=== PATIENT | male | born 1990 | race Caucasian/White ===

== ENCOUNTER 2016-09-01 22:15 | Emergency (ER) | payer OTHER ==
[~2016-09-01] VITALS: Ht 175.3 cm; Wt 81.6 kg
[~2016-09-01 22:15] MED LIST: TUMS500 M1 PO; TYLENOL EXTRA500 M1 PO
[2016-09-01 22:26] VITALS: BP 120/83
--- NOTE | 2016-09-01 23:07 | NUR ---
PATIENT AMBULATED TO ER BED 6.
--- NOTE | 2016-09-01 23:17 | NUR ---
26/M PRESENT TO ER C/O TOOTHACHE X 2 DAYS. PAIN 6/10 THROBBING SHARP NON-RADIATING. PT STATES HE WAS TAKING OTC MOTRIN PRIOR TO ER VISIT. AAOx4, PERRLA, BREATHING EVEN AND UNLABORED. ERMD NOTIFIED OF PATIENT STATUS.
--- NOTE | 2016-09-01 23:31 | NUR ---
PATIENT BEING EVALUATED BY DR. KAY.
[2016-09-01] MEDS ORDERED: KETOROLAC 60 MG/2 ML VIAL IM ONE (23:45)
--- NOTE | 2016-09-01 23:55 | NUR ---
Patient discharged with v/s stable. Written and verbal after care instructions given and explained. Patient alert, oriented and verbalized understanding of instructions. Ambulatory with steady gait. All questions addressed prior to discharge. ID band removed. Patient advised to follow up with PMD. Rx of MOTRIN 800MG, ULTRAM 50MG given. Patient educated on indication of medication including possible reaction and side effects. Opportunity to ask questions provided and answered.
[2016-09-01 23:56] VITALS: BP 119/87
== END 2016-09-01 23:55 | disposition home or self-care (01) ==
LOC: MED 22:15
DX: K08.89 Other specified disorders of teeth and supporting structures (principal); R03.0 Elevated blood-pressure reading, without diagnosis of hypertension; K21.9 Gastro-esophageal reflux disease without esophagitis

== ENCOUNTER 2018-01-07 14:00 | Emergency (ER) | payer OTHER ==
[~2018-01-07] VITALS: Ht 175.3 cm; Wt 81.6 kg
[2018-01-07 14:05] VITALS: BP 124/84
--- NOTE | 2018-01-07 14:07 | NUR ---
PT TRIAGED AND SENT TO ER LOBBY, GIVEN URINE CUP
--- NOTE | 2018-01-07 14:55 | NUR ---
PT AMB TO BED 2
--- NOTE | 2018-01-07 14:56 | NUR ---
27/M BIB SELF C/O PENILE PAIN WITH DISCHARGE, +REDNESS/SWELLING. 3 DAYS. 9/10 ACHING PAIN. STATES HAS YEAST INFECTION AND HE HAS HX OF CHLAMYDIA. NO OTHER COMPLAINTS. HX: CHLAMYDIA, PANIC ATTACKS.AAOX4 WITH EVEN AND STEADY GAIT; PATIENT POSITIONED FOR COMFORT; HOB ELEVATED; BEDRAILS UP X2; BED DOWN. ER MD MADE AWARE OF PT STATUS.
[2018-01-07 16:04] VITALS: BP 110/76
--- NOTE | 2018-01-07 16:04 | NUR ---
Patient discharged with v/s stable. Written and verbal after care instructions given and explained. Patient alert, oriented and verbalized understanding of instructions. Ambulatory with steady gait. All questions addressed prior to discharge. ID band removed. Patient advised to follow up with PMD. Rx of CLOTRIMAZOLE & BACITRACIN given. Patient educated on indication of medication including possible reaction and side effects. Opportunity to ask questions provided and answered.
[2018-01-07 16:07] LABS: APPEARANCE,URINE CLEAR (CLEAR); BILIRUBIN,URINE NEGATIVE (NEGATIVE); BLOOD, URINE NEGATIVE (NEGATIVE); COLOR,URINE YELLOW (YELLOW); LEUKOCYTE ESTERASE ,URINE NEGATIVE (NEGATIVE); NITRITE, URINE NEGATIVE (NEGATIVE); UGLUCOSE NEGATIVE (NEGATIVE)
[2018-01-09 06:20] LABS: CHLAMYDIA TRACHOMATIS AMP DNA Negative (Negative)
== END 2018-01-07 16:04 | disposition home or self-care (01) ==
LOC: MED 14:00
DX: N47.6 Balanoposthitis (principal); K21.9 Gastro-esophageal reflux disease without esophagitis
CPT/HCPCS: 36415; 81003; 87086; 87491; 99284

== ENCOUNTER 2018-11-03 12:51 | Emergency (ER) | payer OTHER ==
[~2018-11-03] VITALS: Ht 175.3 cm; Wt 88.5 kg
[2018-11-03 13:03] VITALS: BP 121/75
--- NOTE | 2018-11-03 13:10 | NUR ---
PT AMB TO BED 2
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
--- NOTE | 2018-11-03 14:58 | NUR ---
Eye Aquity L: 20/20 R: 20/20 B:20/20
[2018-11-03 15:03] VITALS: BP 110/70
--- NOTE | 2018-11-03 15:03 | NUR ---
Patient discharged with v/s stable. Written and verbal after care instructions given and explained. Patient alert, oriented and verbalized understanding of instructions. Ambulatory with steady gait. All questions addressed prior to discharge. ID band removed. Patient advised to follow up with PMD. Rx of Erythromycin 0.5% ointment and Patanol 0.1% given. Patient educated on indication of medication including possible reaction and side effects. Opportunity to ask questions provided and answered.
== END 2018-11-03 15:03 | disposition home or self-care (01) ==
LOC: MED 12:51
DX: H10.11 Acute atopic conjunctivitis, right eye (principal); B96.89 Other specified bacterial agents as the cause of diseases classified elsewhere; K21.9 Gastro-esophageal reflux disease without esophagitis
CPT/HCPCS: 99283

== ENCOUNTER 2020-04-11 21:05 | Emergency (ER) | payer OTHER ==
[~2020-04-11] VITALS: Ht 175.3 cm; Wt 88.9 kg
[2020-04-11 21:54] VITALS: BP 110/80
--- NOTE | 2020-04-11 21:56 | NUR ---
TO LOBBY A/W BED AMBULATORY
--- NOTE | 2020-04-11 22:30 | NUR ---
SEEN AND EXAMINED BY BAKARI WITH ORDERS, CARRIED OUT.
[2020-04-11] MEDS ORDERED: KETOROLAC 30 MG/ML VIAL IM ONE (22:35)
--- NOTE | 2020-04-11 23:10 | NUR ---
TO ADMINISTER MEDICATION, HE REFUSED , ERMD NOTED
[2020-04-12 02:25] VITALS: BP 115/76
--- NOTE | 2020-04-12 02:25 | NUR ---
RESULT BACK AND NOTED BY ERMD AND FOR D/C
--- NOTE | 2020-04-12 02:45 | NUR ---
Patient discharged with v/s stable. Written and verbal after care instructions given and explained. Patient verbalized understanding. Ambulatory with steady gait. All questions addressed prior to discharge. Advised to follow up with PMD.
== END 2020-04-12 02:25 | disposition home or self-care (01) ==
LOC: MED 21:05
DX: R51.9 Headache, unspecified (principal); K21.9 Gastro-esophageal reflux disease without esophagitis
CPT/HCPCS: 70450; 99284; J1885

== ENCOUNTER 2020-10-10 20:58 | Emergency (ER) | payer OTHER ==
[~2020-10-10] VITALS: Ht 175.3 cm; Wt 81.6 kg
[~2020-10-10 20:58] MED LIST changes: +IBUP-2213 PO; -TUMS500 M1 PO; -TYLENOL EXTRA500 M1 PO
[2020-10-10 21:10] VITALS: BP 117/70
--- NOTE | 2020-10-10 21:13 | NUR ---
TO LOBBY A/W BED AMBULATORY
--- NOTE | 2020-10-10 22:26 | NUR ---
PT AMBULATED TO BED
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
[2020-10-10] MEDS ORDERED: cefTRIAXone 250 MG in LIDOCAINE MPF 1% 0.9 ML IM ONE (22:55)
[2020-10-10] MEDS ORDERED: LIDOCAINE MPF 1% 5 ML ONE (22:59)
[2020-10-10] MEDS ORDERED: cefTRIAXone 250 MG VIAL ONE (22:59)
--- NOTE | 2020-10-10 23:22 | NUR ---
RAPID STREP A AND GROUP B STREP COMPLETED AND HANDED TO YASH FROM LAB.
[2020-10-10 23:28] VITALS: BP 117/70
--- NOTE | 2020-10-10 23:28 | NUR ---
Patient discharged with v/s stable. Written and verbal after care instructions given and explained. Patient alert, oriented and verbalized understanding of instructions. Ambulatory with steady gait. All questions addressed prior to discharge. Patient advised to follow up with PCP.
== END 2020-10-10 23:28 | disposition home or self-care (01) ==
LOC: MED 20:58
DX: J03.90 Acute tonsillitis, unspecified (principal); Z79.899 Other long term (current) drug therapy
CPT/HCPCS: 36415; 87081; 96372; 99283; J0696; J2001; 87491

== ENCOUNTER 2022-03-11 15:50 | Emergency (ER) | payer OTHER ==
[~2022-03-11] VITALS: Ht 175.3 cm; Wt 89.4 kg
[2022-03-11 16:00] VITALS: BP 129/84
[2022-03-11] MEDS ORDERED: IBUPROFEN 400 MG TAB PO ONE (16:00)
[2022-03-11] MEDS ORDERED: BPM/118S31 PO (16:01)
[2022-03-11] MEDS ORDERED: TAM75 PO (16:01)
[2022-03-11] MEDS ORDERED: IBUP-2213 PO (16:01)
--- NOTE | 2022-03-11 16:05 | NUR ---
BIB SELF C/O COUGH, TAYLOR, SORE THROAT ,CP, FEVER, X TODAY. SON HAS FLU+. CUSTOMER HAS RSV. PT HAD COVID + 1 MONTH AGO. PT TOOK TYLENOL 10 MINS AGO. ORAL TEMP 100 AT THIS TIME.
[2022-03-11 16:20] VITALS: BP 118/78
--- NOTE | 2022-03-11 16:20 | NUR ---
Patient discharged with v/s stable. Written and verbal after care instructions given and explained. Patient alert, oriented and verbalized understanding of instructions. Ambulatory with steady gait. All questions addressed prior to discharge. ID band removed. Patient advised to follow up with PMD. Rx of TAMIFLU, IBUPROFEN & BROMFED DM COUGH SYRUP given. Patient educated on indication of medication including possible reaction and side effects. Opportunity to ask questions provided and answered.
== END 2022-03-11 16:20 | disposition home or self-care (01) ==
LOC: MED 15:50
DX: B34.9 Viral infection, unspecified (principal); K21.9 Gastro-esophageal reflux disease without esophagitis
CPT/HCPCS: 99283

== ENCOUNTER 2022-03-13 18:53 | Emergency (ER) | payer OTHER ==
[~2022-03-13] VITALS: Ht 175.3 cm; Wt 90.7 kg
[~2022-03-13 18:53] MED LIST changes: +BPM/118S31 PO; +TAM75 PO
[2022-03-13 19:15] VITALS: BP 117/69
--- NOTE | 2022-03-13 19:18 | NUR ---
TO LOBBY A/W BED AMBULATORY
[2022-03-13] MEDS ORDERED: BENZ200C4 PO (20:08)
--- NOTE | 2022-03-13 20:34 | NUR ---
Patient discharged with v/s stable. Written and verbal after care instructions given and explained. Patient alert, oriented and verbalized understanding of instructions. Ambulatory with steady gait. All questions addressed prior to discharge. ID band removed. Patient advised to follow up with PMD. Rx of BENZONATE given.
== END 2022-03-13 20:34 | disposition home or self-care (01) ==
LOC: MED 18:53
DX: J06.9 Acute upper respiratory infection, unspecified (principal)
CPT/HCPCS: 71045; 99283

== ENCOUNTER 2022-06-12 03:15 | Emergency (ER) | payer OTHER ==
[~2022-06-12] VITALS: Ht 175.3 cm; Wt 81.6 kg
[~2022-06-12 03:15] MED LIST changes: +BENZ200C4 PO
[2022-06-12 03:21] VITALS: BP 160/90
--- NOTE | 2022-06-12 03:23 | NUR ---
PT ANNETTA JACKMAN. TAKEN TO BED 11
== END 2022-06-12 04:15 | disposition home or self-care (01) ==
LOC: MED 03:15
DX: R00.2 Palpitations (principal); K21.9 Gastro-esophageal reflux disease without esophagitis; Z79.899 Other long term (current) drug therapy; Z79.1 Long term (current) use of non-steroidal anti-inflammatories (NSAID)
CPT/HCPCS: 93005; 99283

== ENCOUNTER 2022-06-26 23:18 | Emergency (ER) | payer OTHER ==
[~2022-06-26] VITALS: Ht 175.3 cm; Wt 89.8 kg
[2022-06-26 23:30] VITALS: BP 124/81
--- NOTE | 2022-06-26 23:41 | NUR ---
Patient taken to bed 4.
--- NOTE | 2022-06-26 23:42 | NUR ---
Patient BIB by family from home. C/O mid chest pain x today. Patient reported, had mid chest pain, and epigastric pain, dull pain, 3/10, radiate to left arm. Hx GERD
--- NOTE | 2022-06-26 23:59 | NUR ---
XRAY AT BEDSIDE
[2022-06-27] MEDS ORDERED: IBUP-2213 PO (01:04)
[2022-06-27 01:22] VITALS: BP 106/56
== END 2022-06-27 01:22 | disposition home or self-care (01) ==
LOC: MED 23:18
DX: S29.011A Strain of muscle and tendon of front wall of thorax, initial encounter (principal); K21.9 Gastro-esophageal reflux disease without esophagitis; G47.00 Insomnia, unspecified; Z79.899 Other long term (current) drug therapy; Z79.1 Long term (current) use of non-steroidal anti-inflammatories (NSAID); X58.XXXA Exposure to other specified factors, initial encounter; Y92.89 Other specified places as the place of occurrence of the external cause; Y93.89 Activity, other specified; Y99.8 Other external cause status
CPT/HCPCS: 71045; 93005; 99283; Q0092

== ENCOUNTER 2022-07-22 07:01 | Emergency (ER) | payer OTHER ==
[~2022-07-22] VITALS: Ht 175.3 cm; Wt 90.7 kg
[2022-07-22 07:07] VITALS: BP 127/80
--- NOTE | 2022-07-22 07:18 | NUR ---
TO BED 9 FOLLOWING TRIAGE
[2022-07-22] MEDS ORDERED: ATA25 PO (07:35)
--- NOTE | 2022-07-22 07:49 | NUR ---
ASSUMED PATIENT CARE, NURSING ASSESSMENT COMPLETED.
[2022-07-22 08:11] VITALS: BP 127/80
== END 2022-07-22 08:10 | disposition home or self-care (01) ==
LOC: MED 07:01
DX: R53.1 Weakness (principal); K21.9 Gastro-esophageal reflux disease without esophagitis; Z79.899 Other long term (current) drug therapy
CPT/HCPCS: 99283

== ENCOUNTER 2022-09-12 12:18 | Emergency (ER) | payer OTHER ==
[~2022-09-12] VITALS: Ht 175.3 cm; Wt 96.2 kg
[~2022-09-12 12:18] MED LIST changes: +ATA25 PO
[2022-09-12 12:37] VITALS: BP 133/82
--- NOTE | 2022-09-12 13:02 | NUR ---
GEO RIVERO IN LOBBY SPEAKING WITH PT ABOUT DETAILS OF EVENT
--- NOTE | 2022-09-12 14:00 | NUR ---
PT LEFT WITHOUT BEING SEEN
--- NOTE | 2022-09-12 14:02 | NUR ---
PT CALLED IN LOBBY AND OUTSIDE, NO ANSWER AT THIS TIME
--- NOTE | 2022-09-12 14:20 | NUR ---
PT CALLED OUTSIDE AND IN LOBBY, NO ANSWER. LWBS
--- NOTE | 2022-09-12 14:21 | NUR ---
PT WAS CALLED TO BRING IN TO ED, NO ANSWER
== END 2022-09-12 13:02 | disposition left against medical advice (07) ==
LOC: MED 12:31
DX: S09.90XA Unspecified injury of head, initial encounter (principal); R42 Dizziness and giddiness; Z53.21 Procedure and treatment not carried out due to patient leaving prior to being seen by health care provider; X58.XXXA Exposure to other specified factors, initial encounter; Y93.89 Activity, other specified; Y92.89 Other specified places as the place of occurrence of the external cause; Y99.8 Other external cause status
CPT/HCPCS: 99281

== ENCOUNTER 2022-11-18 03:12 | Emergency (ER) | payer OTHER ==
[~2022-11-18] VITALS: Ht 175.3 cm; Wt 95.3 kg
[2022-11-18 03:16] VITALS: BP 147/89; PULSE 102; RESP 17; TEMP 98.7; O2SAT 98
[2022-11-18 03:38] VITALS: BP 147/89; PULSE 102; RESP 17; TEMP 98.7; O2SAT 98
== END 2022-11-18 03:38 | disposition home or self-care (01) ==
LOC: MED 03:12
DX: R00.2 Palpitations (principal); F41.9 Anxiety disorder, unspecified; R53.1 Weakness; K21.9 Gastro-esophageal reflux disease without esophagitis; J45.909 Unspecified asthma, uncomplicated
CPT/HCPCS: 93005; 99283

== ENCOUNTER 2023-02-18 18:25 | Emergency (ER) | payer OTHER ==
[~2023-02-18] VITALS: Ht 175.3 cm; Wt 99.8 kg
[~2023-02-18 18:25] MED LIST changes: -BPM/118S31 PO; +BROM118S70 PO
[2023-02-18 19:30] VITALS: BP 124/78; PULSE 83; RESP 16; TEMP 97.6; O2SAT 98
[2023-02-18] MEDS ORDERED: KETOROLAC 30 MG/ML VIAL IM ONE (20:05)
[2023-02-18] MEDS ORDERED: PROCHLORPERAZINE 10 MG/2 ML VIAL IM ONE (20:05)
[2023-02-18] MEDS ORDERED: IBUP-2213 PO (21:05)
[2023-02-18] MEDS ORDERED: ACET-9496 PO (21:05)
[2023-02-18 21:10] VITALS: BP 119/80; PULSE 81; RESP 17; TEMP 98; O2SAT 98
== END 2023-02-18 21:10 | disposition home or self-care (01) ==
LOC: MED 18:25
DX: R51.9 Headache, unspecified (principal); K21.9 Gastro-esophageal reflux disease without esophagitis; Z88.8 Allergy status to other drugs, medicaments and biological substances; Z79.899 Other long term (current) drug therapy
CPT/HCPCS: 96372; 99284; J0780; J1885

== ENCOUNTER 2023-03-16 21:16 | Emergency (ER) | payer OTHER ==
[~2023-03-16] VITALS: Ht 175.3 cm; Wt 103.0 kg
[~2023-03-16 21:16] MED LIST changes: +ACET-9496 PO
[2023-03-16 21:26] VITALS: BP 136/85; PULSE 122; RESP 20; TEMP 98.1; O2SAT 98
[2023-03-17 00:04] VITALS: BP 136/85; PULSE 122; RESP 20; TEMP 98.1; O2SAT 98
== END 2023-03-17 00:04 | disposition left against medical advice (07) ==
LOC: MED 21:16
DX: R07.9 Chest pain, unspecified (principal); R06.02 Shortness of breath; Z53.21 Procedure and treatment not carried out due to patient leaving prior to being seen by health care provider
CPT/HCPCS: 71045; 93005; 99281

== ENCOUNTER 2023-05-02 02:25 | Emergency (ER) | payer OTHER ==
[~2023-05-02] VITALS: Ht 175.3 cm; Wt 101.2 kg
[2023-05-02 02:30] VITALS: BP 114/76; PULSE 80; RESP 17; TEMP 97.7; O2SAT 97
[2023-05-02] MEDS ORDERED: ACETAMINOPHEN EXTRA STRENGTH 500 MG TAB PO ONE (03:00)
[2023-05-02] MEDS ORDERED: DEXAMETHASONE 4 MG/ML VIAL PO ONE (03:00)
[2023-05-02] MEDS ORDERED: KETOROLAC 30 MG/ML VIAL IM ONE (03:00)
[2023-05-02 03:14] LABS: FLU A ANTIGEN negative (NEGATIVE); FLU B ANTIGEN NEGATIVE (NEGATIVE)
[2023-05-02 03:47] VITALS: BP 114/76; PULSE 80; RESP 17; TEMP 97.7; O2SAT 97
== END 2023-05-02 03:47 | disposition home or self-care (01) ==
LOC: MED 02:25
DX: J02.9 Acute pharyngitis, unspecified (principal); M79.18 Myalgia, other site; Z20.822 Contact with and (suspected) exposure to COVID-19; K21.9 Gastro-esophageal reflux disease without esophagitis; Z79.899 Other long term (current) drug therapy; Z79.1 Long term (current) use of non-steroidal anti-inflammatories (NSAID); Z88.1 Allergy status to other antibiotic agents
CPT/HCPCS: 87081; 87426; 87804; 96372; 99283; J1100; J1885

== ENCOUNTER 2023-05-02 12:25 | Emergency (ER) | payer OTHER ==
[~2023-05-02] VITALS: Ht 175.3 cm; Wt 101.2 kg
[2023-05-02 12:35] VITALS: BP 142/87; PULSE 127; RESP 16; TEMP 97.1; O2SAT 100
[2023-05-02 13:14] LABS: BASOPHILS % (AUTO) 0.4 % (0.0-2.0); EOSINOPHILS % (AUTO) 0.1 % (0.0-4.0); HEMATOCRIT 45.2 % (36-52); HEMOGLOBIN 15.6 g/dL (12.0-18.0); LYMPHOCYTES # (AUTO) 0.9 K/uL (2.0-11.5); LYMPHOCYTES % (AUTO) 9.5 % (20.5-51.1); MEAN CORPUSCULAR HEMOGLOBIN 30 pg (27-31); MEAN CORPUSCULAR HGB CONC 35 g/dL (33-37); MONOCYTES # (AUTO) 0.3 K/uL (0.8-1.0); MONOCYTES % (AUTO) 2.7 % (1.7-9.3); NEUTROPHILS # (AUTO) 8.4 K/uL (1.8-7.7); NEUTROPHILS % (AUTO) 87.3 % (42.2-75.2); PLATELET COUNT (AUTO) 278 K/uL (140-450); RED CELL DISTRIBUTION WIDTH 12.9 % (11.6-13.7); WHITE BLOOD COUNT (AUTO) 9.6 K/uL (4.8-10.8)
[2023-05-02 13:28] LABS: ANION GAP 12.7 (8-16); CALCIUM 9.2 mg/dL (8.5-10.1); CARBON DIOXIDE 26.3 mmol/L (21-32)
[2023-05-02 15:45] VITALS: BP 121/71; PULSE 97; RESP 20; TEMP 97.1; O2SAT 97
== END 2023-05-02 15:45 | disposition home or self-care (01) ==
LOC: MED 12:25
DX: R00.2 Palpitations (principal); R07.89 Other chest pain; J02.9 Acute pharyngitis, unspecified; K21.9 Gastro-esophageal reflux disease without esophagitis; F41.9 Anxiety disorder, unspecified; Z79.899 Other long term (current) drug therapy; Z79.1 Long term (current) use of non-steroidal anti-inflammatories (NSAID); Z88.1 Allergy status to other antibiotic agents
CPT/HCPCS: 36415; 71045; 80048; 83880; 84484; 85025; 93005; 99285

== ENCOUNTER 2023-05-30 12:44 | Emergency (ER) | payer OTHER ==
[~2023-05-30] VITALS: Ht 175.3 cm; Wt 101.2 kg
[2023-05-30 13:07] VITALS: BP 116/82; PULSE 66; RESP 16; TEMP 98.5; O2SAT 97
[2023-05-30 13:54] LABS: BASOPHILS # (AUTO) 0.1 K/uL (0.00-0.22); BASOPHILS % (AUTO) 1.3 % (0.0-2.0); EOSINOPHILS # (AUTO) 0.2 K/uL (0-0.4); EOSINOPHILS % (AUTO) 3.2 % (0.0-4.0); HEMATOCRIT 44.2 % (36-52); HEMOGLOBIN 15.1 g/dL (12.0-18.0); LYMPHOCYTES # (AUTO) 1.7 K/uL (2.0-11.5); LYMPHOCYTES % (AUTO) 22.4 % (20.5-51.1); MEAN CORPUSCULAR HEMOGLOBIN 30 pg (27-31); MEAN CORPUSCULAR HGB CONC 34 g/dL (33-37); MEAN CORPUSCULAR VOLUME 87.7 fL (80-94); MONOCYTES # (AUTO) 0.7 K/uL (0.8-1.0); MONOCYTES % (AUTO) 8.9 % (1.7-9.3); NEUTROPHILS % (AUTO) 64.2 % (42.2-75.2); PLATELET COUNT (AUTO) 274 K/uL (140-450); RED BLOOD CELL COUNT(AUTO) 5.04 MIL/uL (4.20-6.10); RED CELL DISTRIBUTION WIDTH 12.9 % (11.6-13.7); WHITE BLOOD COUNT (AUTO) 7.8 K/uL (4.8-10.8)
[2023-05-30 14:12] LABS: ANION GAP 11.5 (8-16); CARBON DIOXIDE 28.4 mmol/L (21-32); CREATININE 0.9 mg/dL (0.6-1.3); POTASSIUM 3.9 mmol/L (3.5-5.1)
[2023-05-30 14:16] LABS: TOTAL BILIRUBIN 0.2 mg/dL (0.0-1.0); TOTAL PROTEIN, SERUM 8.2 g/dL (6.4-8.2)
[2023-05-30 14:33] LABS: ALBUMIN 3.3 g/dL (3.4-5.0); BILIRUBIN,DIRECT 0.1 mg/dL (0.0-0.3)
[2023-05-30 17:13] VITALS: BP 117/85; PULSE 85; RESP 16; O2SAT 99
== END 2023-05-30 17:14 | disposition home or self-care (01) ==
LOC: MED 12:44
DX: R10.11 Right upper quadrant pain (principal); R68.83 Chills (without fever); K21.9 Gastro-esophageal reflux disease without esophagitis; Z79.899 Other long term (current) drug therapy; Z88.1 Allergy status to other antibiotic agents
CPT/HCPCS: 36415; 74176; 76705; 80048; 80076; 81002; 83690; 85025; 99284; Q0092

== ENCOUNTER 2023-07-03 22:44 | Emergency (ER) | payer OTHER ==
[~2023-07-03] VITALS: Ht 175.3 cm; Wt 99.8 kg
[~2023-07-03 22:44] MED LIST changes: +BEN10 PO; +METR-435 PO
[2023-07-03 22:49] VITALS: BP 139/77; PULSE 108; RESP 20; TEMP 97.1; O2SAT 98
[2023-07-04 01:59] LABS: BASOPHILS # (AUTO) 0.1 K/uL (0.00-0.22); EOSINOPHILS # (AUTO) 0.2 K/uL (0-0.4); EOSINOPHILS % (AUTO) 1.7 % (0.0-4.0); HEMATOCRIT 43.2 % (36-52); HEMOGLOBIN 14.6 g/dL (12.0-18.0); LYMPHOCYTES # (AUTO) 1.9 K/uL (2.0-11.5); LYMPHOCYTES % (AUTO) 19.8 % (20.5-51.1); MEAN CORPUSCULAR HEMOGLOBIN 30 pg (27-31); MEAN CORPUSCULAR HGB CONC 34 g/dL (33-37); MONOCYTES # (AUTO) 0.9 K/uL (0.8-1.0); MONOCYTES % (AUTO) 9.2 % (1.7-9.3); NEUTROPHILS # (AUTO) 6.4 K/uL (1.8-7.7); NEUTROPHILS % (AUTO) 68.3 % (42.2-75.2); PLATELET COUNT (AUTO) 240 K/uL (140-450); RED BLOOD CELL COUNT(AUTO) 4.92 MIL/uL (4.20-6.10); RED CELL DISTRIBUTION WIDTH 12.6 % (11.6-13.7); WHITE BLOOD COUNT (AUTO) 9.4 K/uL (4.8-10.8)
[2023-07-04] MEDS: DICYCLOMINE 20 MG/2 ML VIAL IM ONE (02:08)
[2023-07-04] MEDS: LORazepam 1 MG TAB PO ONE (02:09)
[2023-07-04 02:15] LABS: ANION GAP 11.2 (8-16); POTASSIUM 4.2 mmol/L (3.5-5.1)
[2023-07-04 02:33] LABS: ALBUMIN 3.7 g/dL (3.4-5.0); TOTAL BILIRUBIN 0.1 mg/dL (0.0-1.0); TOTAL PROTEIN, SERUM 7.5 g/dL (6.4-8.2)
[2023-07-04] MEDS ORDERED: ACET-8905 PO (03:21)
[2023-07-04 03:47] VITALS: O2SAT 99
== END 2023-07-04 03:40 | disposition home or self-care (01) ==
LOC: MED 22:44
DX: R10.10 Upper abdominal pain, unspecified (principal); K21.9 Gastro-esophageal reflux disease without esophagitis; I25.10 Atherosclerotic heart disease of native coronary artery without angina pectoris; Z88.8 Allergy status to other drugs, medicaments and biological substances; Z79.899 Other long term (current) drug therapy
CPT/HCPCS: 36415; 80048; 80076; 83690; 85025; 96372; 99283; J0500

== ENCOUNTER 2023-07-05 03:08 | Emergency (ER) | payer OTHER ==
[~2023-07-05] VITALS: Ht 175.3 cm; Wt 99.8 kg
[~2023-07-05 03:08] MED LIST changes: +ACET-8905 PO
[2023-07-05 03:10] VITALS: BP 167/80; PULSE 154; RESP 17; TEMP 98.2; O2SAT 100
[2023-07-05 03:25] VITALS: BP 143/84; PULSE 115; RESP 20; TEMP 98.2; O2SAT 100
== END 2023-07-05 03:25 | disposition home or self-care (01) ==
LOC: MED 03:08
DX: R00.2 Palpitations (principal); F41.9 Anxiety disorder, unspecified; K21.9 Gastro-esophageal reflux disease without esophagitis; Z79.1 Long term (current) use of non-steroidal anti-inflammatories (NSAID); Z79.899 Other long term (current) drug therapy; Z88.1 Allergy status to other antibiotic agents
CPT/HCPCS: 99283

== ENCOUNTER 2023-07-20 17:48 | Emergency (ER) | payer OTHER | END 2023-07-20 18:17 | disposition left against medical advice (07) | LOC: MED 17:48 | DX: R10.9 Unspecified abdominal pain (principal); Z53.21 Procedure and treatment not carried out due to patient leaving prior to being seen by health care provider ==

== ENCOUNTER 2023-07-22 08:54 | Emergency (ER) | payer OTHER ==
[~2023-07-22] VITALS: Ht 175.3 cm; Wt 95.3 kg
[2023-07-22 09:11] VITALS: BP 125/88; PULSE 91; RESP 17; TEMP 98.3; O2SAT 98
[2023-07-22] MEDS ORDERED: MAG-27 PO (10:46)
[2023-07-22] MEDS ORDERED: SUCR1TAB56 PO (10:46)
[2023-07-22] MEDS: ALUMINUM HYD/MAG/SIMETHICONE 30 ML UDC PO ONE (11:01)
[2023-07-22 11:06] VITALS: BP 125/88; PULSE 91; RESP 17; TEMP 98.3; O2SAT 98
== END 2023-07-22 11:20 | disposition home or self-care (01) ==
LOC: MED 08:54
DX: K29.70 Gastritis, unspecified, without bleeding (principal); R03.0 Elevated blood-pressure reading, without diagnosis of hypertension; R11.0 Nausea; R19.7 Diarrhea, unspecified; K21.9 Gastro-esophageal reflux disease without esophagitis; Z79.1 Long term (current) use of non-steroidal anti-inflammatories (NSAID); Z79.899 Other long term (current) drug therapy; Z88.1 Allergy status to other antibiotic agents
CPT/HCPCS: 93005; 99283

== ENCOUNTER 2023-07-29 02:55 | Emergency (ER) | payer OTHER ==
[~2023-07-29] VITALS: Ht 175.3 cm; Wt 88.5 kg
[~2023-07-29 02:55] MED LIST changes: +MAG-27 PO; +SUCR1TAB56 PO
[2023-07-29 03:00] VITALS: BP 116/76; PULSE 60; RESP 16; TEMP 97; O2SAT 99
[2023-07-29 03:05] VITALS: BP 116/76; PULSE 60; RESP 16; TEMP 97; O2SAT 99
== END 2023-07-29 03:16 | disposition home or self-care (01) ==
LOC: MED 02:55
DX: R00.1 Bradycardia, unspecified (principal); R06.02 Shortness of breath; K21.9 Gastro-esophageal reflux disease without esophagitis; Z79.1 Long term (current) use of non-steroidal anti-inflammatories (NSAID); Z79.899 Other long term (current) drug therapy; Z88.1 Allergy status to other antibiotic agents
CPT/HCPCS: 99281

== ENCOUNTER 2023-08-02 22:19 | Emergency (ER) | payer OTHER ==
[~2023-08-02] VITALS: Ht 175.3 cm; Wt 99.8 kg
[2023-08-02 22:20] VITALS: BP 107/76; PULSE 82; RESP 18; TEMP 98.5; O2SAT 97
[2023-08-02 23:28] LABS: FLU A ANTIGEN negative (NEGATIVE); FLU B ANTIGEN NEGATIVE (NEGATIVE)
[2023-08-02] MEDS ORDERED: [UNRECOGNIZED DRUG - CODE] PO (23:43)
[2023-08-02] MEDS ORDERED: BENZ200C4 PO (23:43)
[2023-08-02] MEDS ORDERED: ACET-10509 PO (23:43)
== END 2023-08-02 23:49 | disposition home or self-care (01) ==
LOC: MED 22:19
DX: U07.1 COVID-19 (principal); K21.9 Gastro-esophageal reflux disease without esophagitis; I25.10 Atherosclerotic heart disease of native coronary artery without angina pectoris; Z79.899 Other long term (current) drug therapy
CPT/HCPCS: 71045; 99284

== ENCOUNTER 2023-08-09 22:08 | Emergency (ER) | payer OTHER ==
[~2023-08-09] VITALS: Ht 172.7 cm; Wt 95.3 kg
[~2023-08-09 22:08] MED LIST changes: +ACET-10509 PO; +[UNRECOGNIZED DRUG - CODE] PO
[2023-08-09 22:41] VITALS: BP 105/69; PULSE 68; RESP 20; TEMP 98; O2SAT 98
[2023-08-09 23:31] VITALS: BP 105/69; PULSE 68; RESP 20; TEMP 98
[2023-08-10 00:47] LABS: BASOPHILS # (AUTO) 0.1 K/uL (0.00-0.22); BASOPHILS % (AUTO) 0.9 % (0.0-2.0); EOSINOPHILS # (AUTO) 0.3 K/uL (0-0.4); HEMATOCRIT 42.4 % (36-52); HEMOGLOBIN 14.2 g/dL (12.0-18.0); LYMPHOCYTES % (AUTO) 32.9 % (20.5-51.1); MEAN CORPUSCULAR HEMOGLOBIN 30 pg (27-31); MEAN CORPUSCULAR HGB CONC 34 g/dL (33-37); MEAN CORPUSCULAR VOLUME 88.2 fL (80-94); MONOCYTES # (AUTO) 0.9 K/uL (0.8-1.0); MONOCYTES % (AUTO) 9.4 % (1.7-9.3); NEUTROPHILS % (AUTO) 53.8 % (42.2-75.2); PLATELET COUNT (AUTO) 268 K/uL (140-450); RED BLOOD CELL COUNT(AUTO) 4.81 MIL/uL (4.20-6.10); RED CELL DISTRIBUTION WIDTH 12.6 % (11.6-13.7); WHITE BLOOD COUNT (AUTO) 9.3 K/uL (4.8-10.8)
[2023-08-10 01:00] VITALS: O2SAT 98
[2023-08-10 01:03] LABS: CALCIUM 8.8 mg/dL (8.5-10.1); CARBON DIOXIDE 27.9 mmol/L (21-32); CREATININE 0.9 mg/dL (0.6-1.3); POTASSIUM 3.9 mmol/L (3.5-5.1)
[2023-08-10 01:04] LABS: ALBUMIN 3.8 g/dL (3.4-5.0); BILIRUBIN,DIRECT 0.1 mg/dL (0.0-0.3); TOTAL BILIRUBIN 0.3 mg/dL (0.0-1.0); TOTAL PROTEIN, SERUM 7.5 g/dL (6.4-8.2)
[2023-08-10 01:11] LABS: APPEARANCE,URINE CLEAR (CLEAR); BILIRUBIN,URINE NEGATIVE (NEGATIVE); BLOOD, URINE TRACE-I (NEGATIVE); COLOR,URINE YELLOW (YELLOW); LEUKOCYTE ESTERASE ,URINE NEGATIVE (NEGATIVE); NITRITE, URINE NEGATIVE (NEGATIVE); PROTEIN,URINE NEGATIVE (NEGATIVE); UGLUCOSE NEGATIVE (NEGATIVE); UROBILINOGEN,URINE 0.2 EU/dL (0.2 - 1)
== END 2023-08-10 01:42 | disposition home or self-care (01) ==
LOC: MED 22:08
DX: K76.0 Fatty (change of) liver, not elsewhere classified (principal); K21.9 Gastro-esophageal reflux disease without esophagitis; I25.10 Atherosclerotic heart disease of native coronary artery without angina pectoris; Z79.899 Other long term (current) drug therapy
CPT/HCPCS: 36415; 80048; 80076; 81003; 83690; 85025; 99283

== ENCOUNTER 2023-08-12 10:04 | Emergency (ER) | payer OTHER ==
[~2023-08-12] VITALS: Ht 175.3 cm; Wt 93.9 kg
[2023-08-12 10:22] VITALS: BP 114/73; PULSE 65; RESP 20; TEMP 98.3; O2SAT 95
[2023-08-12 11:45] VITALS: O2SAT 98
[2023-08-12 11:55] LABS: BASOPHILS # (AUTO) 0.1 K/uL (0.00-0.22); BASOPHILS % (AUTO) 0.9 % (0.0-2.0); EOSINOPHILS # (AUTO) 0.2 K/uL (0-0.4); EOSINOPHILS % (AUTO) 2.7 % (0.0-4.0); HEMATOCRIT 44.3 % (36-52); HEMOGLOBIN 14.9 g/dL (12.0-18.0); LYMPHOCYTES # (AUTO) 1.8 K/uL (2.0-11.5); LYMPHOCYTES % (AUTO) 26.3 % (20.5-51.1); MEAN CORPUSCULAR HEMOGLOBIN 29 pg (27-31); MEAN CORPUSCULAR HGB CONC 34 g/dL (33-37); MEAN CORPUSCULAR VOLUME 87.1 fL (80-94); MONOCYTES # (AUTO) 0.6 K/uL (0.8-1.0); MONOCYTES % (AUTO) 8.5 % (1.7-9.3); NEUTROPHILS # (AUTO) 4.3 K/uL (1.8-7.7); NEUTROPHILS % (AUTO) 61.6 % (42.2-75.2); PLATELET COUNT (AUTO) 268 K/uL (140-450); RED BLOOD CELL COUNT(AUTO) 5.08 MIL/uL (4.20-6.10); RED CELL DISTRIBUTION WIDTH 12.8 % (11.6-13.7)
[2023-08-12 12:36] LABS: INR 0.95 (0.8-1.2)
[2023-08-12 12:42] LABS: APPEARANCE,URINE CLEAR (CLEAR); BILIRUBIN,URINE NEGATIVE (NEGATIVE); BLOOD, URINE NEGATIVE (NEGATIVE); COLOR,URINE YELLOW (YELLOW); LEUKOCYTE ESTERASE ,URINE NEGATIVE (NEGATIVE); NITRITE, URINE NEGATIVE (NEGATIVE); PH,URINE 7.5 (5.0-9.0); PROTEIN,URINE NEGATIVE (NEGATIVE); UGLUCOSE NEGATIVE (NEGATIVE); UROBILINOGEN,URINE 0.2 EU/dL (0.2 - 1)
[2023-08-12 12:47] LABS: ANION GAP 9.6 (8-16); CARBON DIOXIDE 29.4 mmol/L (21-32)
[2023-08-12] MEDS ORDERED: HYDR25CA1 PO (12:49)
[2023-08-12 12:50] LABS: ALANINE AMINOTRANSFERASE 65 U/L (12-78); ALBUMIN 3.7 g/dL (3.4-5.0); ALKALINE PHOSPHATASE 98 U/L (50-136); ASPARTATE AMINOTRANSFERASE 24 U/L (15-37); BILIRUBIN,DIRECT 0.1 mg/dL (0.0-0.3); TOTAL BILIRUBIN 0.4 mg/dL (0.0-1.0); TOTAL PROTEIN, SERUM 7.4 g/dL (6.4-8.2)
[2023-08-12 12:54] LABS: AMPHETAMINE, URINE NEGATIVE ng/ml (NEG <=1000); BARBITURATE, URINE NEGATIVE ng/ml (NEG <=200); BENZODIAZEPINE, URINE NEGATIVE ng/mL (NEG <=200); CANNABINOID, URINE NEGATIVE ng/mL (NEG <=50); COCAINE, URINE NEGATIVE ng/mL (NEG <=300); OPIATE, URINE NEGATIVE ng/mL (NEG <=2000); PHENCYCLIDINE SCREEN,URINE NEGATIVE ng/mL (NEG <=25)
[2023-08-12 13:49] VITALS: BP 110/60; PULSE 88; RESP 18; TEMP 98.3; O2SAT 97
== END 2023-08-12 13:51 | disposition home or self-care (01) ==
LOC: MED 10:04
DX: F41.9 Anxiety disorder, unspecified (principal); R00.1 Bradycardia, unspecified; K21.9 Gastro-esophageal reflux disease without esophagitis; I25.10 Atherosclerotic heart disease of native coronary artery without angina pectoris; Z88.8 Allergy status to other drugs, medicaments and biological substances; Z79.899 Other long term (current) drug therapy
CPT/HCPCS: 36415; 71045; 80048; 80076; 80305; 81003; 83880; 84484; 85025; 85610; 85730; 93005; 99285

== ENCOUNTER 2023-08-14 21:35 | Emergency (ER) | payer OTHER ==
[~2023-08-14] VITALS: Ht 172.7 cm; Wt 93.0 kg
[~2023-08-14 21:35] MED LIST changes: +HYDR25CA1 PO
[2023-08-14 21:53] VITALS: BP 142/92; PULSE 84; RESP 14; TEMP 97.3; O2SAT 99
[2023-08-14 21:59] VITALS: BP 142/92; PULSE 84; RESP 14; TEMP 97.3; O2SAT 99
== END 2023-08-14 22:18 | disposition home or self-care (01) ==
LOC: MED 21:35
DX: F41.9 Anxiety disorder, unspecified (principal); R06.02 Shortness of breath; K21.9 Gastro-esophageal reflux disease without esophagitis; I25.10 Atherosclerotic heart disease of native coronary artery without angina pectoris; Z79.899 Other long term (current) drug therapy
CPT/HCPCS: 99281

== ENCOUNTER 2023-08-28 18:42 | Emergency (ER) | payer OTHER ==
[~2023-08-28] VITALS: Ht 175.3 cm; Wt 93.0 kg
[2023-08-28 18:53] VITALS: BP 110/75; PULSE 74; RESP 18; TEMP 97.5; O2SAT 100
[2023-08-28 19:21] VITALS: BP 111/73; PULSE 74; RESP 18; TEMP 97.5
[2023-08-28 19:22] VITALS: O2SAT 100
== END 2023-08-28 19:41 | disposition home or self-care (01) ==
LOC: MED 18:42
DX: R07.89 Other chest pain (principal); M25.512 Pain in left shoulder; R05.9 Cough, unspecified; Z86.79 Personal history of other diseases of the circulatory system; K21.9 Gastro-esophageal reflux disease without esophagitis; Z79.1 Long term (current) use of non-steroidal anti-inflammatories (NSAID); Z79.899 Other long term (current) drug therapy; Z88.1 Allergy status to other antibiotic agents
CPT/HCPCS: 93005; 99283

== ENCOUNTER 2023-09-06 00:07 | Emergency (ER) | payer OTHER ==
[~2023-09-06] VITALS: Ht 175.3 cm; Wt 92.5 kg
[2023-09-06 01:12] VITALS: BP 135/85; PULSE 88; RESP 16; TEMP 97; O2SAT 100
[2023-09-06] MEDS ORDERED: DICYCLOMINE HCL LIQUID 10 MG/5 ML UDC ONE (01:39)
[2023-09-06] MEDS ORDERED: ALUMINUM HYD/MAG/SIMETHICONE 30 ML UDC ONE (01:39)
[2023-09-06 01:40] VITALS: O2SAT 100
[2023-09-06] MEDS: DICYCLOMINE HCL LIQUID 20 MG, ALUMINUM HYD/MAG/SIMETHICONE 30 ML, LIDOCAINE VISCOUS 2% ... PO ONE (01:57)
== END 2023-09-06 01:50 | disposition home or self-care (01) ==
LOC: MED 00:07
DX: K20.90 Esophagitis, unspecified without bleeding (principal); K21.9 Gastro-esophageal reflux disease without esophagitis; Z86.79 Personal history of other diseases of the circulatory system; Z79.1 Long term (current) use of non-steroidal anti-inflammatories (NSAID); Z79.899 Other long term (current) drug therapy; Z88.1 Allergy status to other antibiotic agents
CPT/HCPCS: 99282; 99283

== ENCOUNTER 2023-09-14 02:29 | Emergency (ER) | payer OTHER ==
[~2023-09-14] VITALS: Ht 175.3 cm; Wt 81.6 kg
[2023-09-14 02:34] VITALS: BP 124/86; PULSE 65; RESP 16; TEMP 97.9; O2SAT 99
== END 2023-09-14 04:12 | disposition left against medical advice (07) ==
LOC: MED 02:29
DX: R10.9 Unspecified abdominal pain (principal); Z53.21 Procedure and treatment not carried out due to patient leaving prior to being seen by health care provider

== ENCOUNTER 2023-09-22 07:10 | Emergency (ER) | payer OTHER ==
[~2023-09-22] VITALS: Ht 175.3 cm; Wt 91.2 kg
[2023-09-22 07:17] VITALS: BP 127/92; PULSE 77; RESP 16; TEMP 97.9; O2SAT 100
[2023-09-22 07:46] LABS: BASOPHILS # (AUTO) 0.1 K/uL (0.00-0.22); BASOPHILS % (AUTO) 1.1 % (0.0-2.0); EOSINOPHILS # (AUTO) 0.2 K/uL (0-0.4); EOSINOPHILS % (AUTO) 3.2 % (0.0-4.0); HEMATOCRIT 44.6 % (36-52); LYMPHOCYTES # (AUTO) 2.3 K/uL (2.0-11.5); LYMPHOCYTES % (AUTO) 30.8 % (20.5-51.1); MEAN CORPUSCULAR HEMOGLOBIN 29 pg (27-31); MEAN CORPUSCULAR HGB CONC 34 g/dL (33-37); MEAN CORPUSCULAR VOLUME 87.6 fL (80-94); MONOCYTES # (AUTO) 0.7 K/uL (0.8-1.0); MONOCYTES % (AUTO) 9.2 % (1.7-9.3); NEUTROPHILS # (AUTO) 4.2 K/uL (1.8-7.7); NEUTROPHILS % (AUTO) 55.7 % (42.2-75.2); PLATELET COUNT (AUTO) 237 K/uL (140-450); RED BLOOD CELL COUNT(AUTO) 5.09 MIL/uL (4.20-6.10); RED CELL DISTRIBUTION WIDTH 13.3 % (11.6-13.7); WHITE BLOOD COUNT (AUTO) 7.6 K/uL (4.8-10.8)
[2023-09-22] MEDS: FAMOTIDINE 20 MG TAB PO ONE (07:48)
[2023-09-22] MEDS: ALUMINUM HYD/MAG/SIMETHICONE 30 ML UDC PO ONE (07:49)
[2023-09-22 08:06] LABS: ALANINE AMINOTRANSFERASE 45 U/L (12-78); ALBUMIN 3.9 g/dL (3.4-5.0); ALKALINE PHOSPHATASE 103 U/L (50-136); ANION GAP 14.4 (8-16); ASPARTATE AMINOTRANSFERASE 19 U/L (15-37); CALCIUM 8.6 mg/dL (8.5-10.1); CARBON DIOXIDE 26.1 mmol/L (21-32); CHLORIDE 102 mmol/L (98-107); CREATININE 1.1 mg/dL (0.6-1.3); GFR ARICAN-AMERICAN 99 mL/min (>90); GFR NON ARICAN-AMERICAN 82 mL/min (>90); GLUCOSE 100 mg/dL (74-106); LIPASE 38 U/L (16-77); POTASSIUM 3.5 mmol/L (3.5-5.1); SODIUM SERUM 139 mmol/L (136-145); TOTAL BILIRUBIN 0.4 mg/dL (0.0-1.0); TOTAL PROTEIN, SERUM 7.9 g/dL (6.4-8.2); UREA NITROGEN, BLOOD 13 mg/dL (7-18)
[2023-09-22] MEDS ORDERED: ONDANSETRON 4 MG ODT ONE (10:16)
[2023-09-22] MEDS: ONDANSETRON 4 MG ODT PO ONE (10:20)
[2023-09-22 11:05] VITALS: BP 111/77; PULSE 68; RESP 12; TEMP 97.9; O2SAT 99
== END 2023-09-22 11:05 | disposition home or self-care (01) ==
LOC: MED 07:10
DX: R07.89 Other chest pain (principal); K20.90 Esophagitis, unspecified without bleeding; K21.9 Gastro-esophageal reflux disease without esophagitis; Z79.899 Other long term (current) drug therapy; Z88.1 Allergy status to other antibiotic agents
CPT/HCPCS: 36415; 71045; 76705; 80053; 83690; 84484; 85025; 99284; Q0092; Q0162

== ENCOUNTER 2023-09-26 03:03 | Emergency (ER) | payer OTHER ==
[~2023-09-26] VITALS: Ht 175.3 cm; Wt 91.2 kg
[2023-09-26 03:05] VITALS: BP 130/90; PULSE 82; RESP 19; TEMP 98; O2SAT 100
[2023-09-26 04:57] VITALS: BP 100/72; PULSE 64; RESP 14; TEMP 97.8; O2SAT 100
== END 2023-09-26 04:57 | disposition home or self-care (01) ==
LOC: MED 03:03
DX: F41.9 Anxiety disorder, unspecified (principal); K21.9 Gastro-esophageal reflux disease without esophagitis; R10.9 Unspecified abdominal pain; Z79.1 Long term (current) use of non-steroidal anti-inflammatories (NSAID); Z79.899 Other long term (current) drug therapy; Z88.1 Allergy status to other antibiotic agents
CPT/HCPCS: 99281

== ENCOUNTER 2023-09-29 01:32 | Emergency (ER) | payer OTHER ==
[~2023-09-29] VITALS: Ht 170.2 cm; Wt 68.0 kg
[2023-09-29 01:40] VITALS: BP 105/67; PULSE 76; RESP 18; TEMP 36.16956; O2SAT 99
== END 2023-09-29 01:40 | disposition home or self-care (01) ==
LOC: MED 01:32
DX: R06.02 Shortness of breath (principal); K21.9 Gastro-esophageal reflux disease without esophagitis; Z86.79 Personal history of other diseases of the circulatory system; Z79.1 Long term (current) use of non-steroidal anti-inflammatories (NSAID); Z79.2 Long term (current) use of antibiotics; Z79.899 Other long term (current) drug therapy; Z88.1 Allergy status to other antibiotic agents
CPT/HCPCS: 99281

== ENCOUNTER 2023-10-17 17:23 | Emergency (ER) | payer OTHER ==
[~2023-10-17] VITALS: Ht 175.3 cm; Wt 89.1 kg
[2023-10-17 17:33] VITALS: BP 129/83; PULSE 102; RESP 18; TEMP 98.5; O2SAT 98
[2023-10-17 18:35] VITALS: BP 122/81; PULSE 88; RESP 16; TEMP 98; O2SAT 99
== END 2023-10-17 18:35 | disposition home or self-care (01) ==
LOC: MED 17:23
DX: F41.9 Anxiety disorder, unspecified (principal); K21.9 Gastro-esophageal reflux disease without esophagitis; Z79.899 Other long term (current) drug therapy; Z88.1 Allergy status to other antibiotic agents
CPT/HCPCS: 93005; 99283

== ENCOUNTER 2023-10-26 21:40 | Emergency (ER) | payer OTHER ==
[~2023-10-26] VITALS: Ht 175.3 cm; Wt 88.5 kg
[2023-10-26 21:53] VITALS: BP 164/87; PULSE 66; RESP 16; TEMP 97.2; O2SAT 99
[2023-10-26 23:16] LABS: BASOPHILS # (AUTO) 0.1 K/uL (0.00-0.22); BASOPHILS % (AUTO) 1.4 % (0.0-2.0); EOSINOPHILS # (AUTO) 0.2 K/uL (0-0.4); EOSINOPHILS % (AUTO) 2.4 % (0.0-4.0); HEMATOCRIT 44.9 % (36-52); HEMOGLOBIN 15.2 g/dL (12.0-18.0); LYMPHOCYTES # (AUTO) 3.3 K/uL (2.0-11.5); MEAN CORPUSCULAR HEMOGLOBIN 29 pg (27-31); MEAN CORPUSCULAR HGB CONC 34 g/dL (33-37); MEAN CORPUSCULAR VOLUME 86.5 fL (80-94); MONOCYTES # (AUTO) 0.8 K/uL (0.8-1.0); MONOCYTES % (AUTO) 9.1 % (1.7-9.3); NEUTROPHILS # (AUTO) 4.7 K/uL (1.8-7.7); NEUTROPHILS % (AUTO) 51.1 % (42.2-75.2); PLATELET COUNT (AUTO) 253 K/uL (140-450); RED BLOOD CELL COUNT(AUTO) 5.19 MIL/uL (4.20-6.10); RED CELL DISTRIBUTION WIDTH 12.9 % (11.6-13.7); WHITE BLOOD COUNT (AUTO) 9.1 K/uL (4.8-10.8)
[2023-10-26 23:18] LABS: APPEARANCE,URINE CLEAR (CLEAR); BILIRUBIN,URINE NEGATIVE (NEGATIVE); BLOOD, URINE TRACE-I (NEGATIVE); COLOR,URINE YELLOW (YELLOW); LEUKOCYTE ESTERASE ,URINE NEGATIVE (NEGATIVE); NITRITE, URINE NEGATIVE (NEGATIVE); PROTEIN,URINE NEGATIVE (NEGATIVE); UGLUCOSE NEGATIVE (NEGATIVE); UROBILINOGEN,URINE 0.2 EU/dL (0.2 - 1)
[2023-10-26] MEDS: diphenhydrAMINE 50 MG/ML VIAL IM ONE (23:22)
[2023-10-26] MEDS: NACL 0.9% 1,000 ML IV ONE (23:27)
[2023-10-26] MEDS: MORPHINE SULFATE 4 MG/ML SYR IVP ONE (23:28)
[2023-10-26] MEDS: ONDANSETRON 4 MG/2 ML VIAL IVP ONE (23:31)
[2023-10-27] LABS: ANION GAP 16.4 (8-16); CALCIUM 9.7 mg/dL (8.5-10.1); CARBON DIOXIDE 25.2 mmol/L (21-32); CREATININE 1.2 mg/dL (0.6-1.3); POTASSIUM 3.6 mmol/L (3.5-5.1)
[2023-10-27 00:09] LABS: ALBUMIN 4.3 g/dL (3.4-5.0); TOTAL BILIRUBIN 0.3 mg/dL (0.0-1.0); TOTAL PROTEIN, SERUM 8.4 g/dL (6.4-8.2)
[2023-10-27 00:24] VITALS: BP 111/73; PULSE 62; RESP 16; O2SAT 99
== END 2023-10-27 02:38 | disposition home or self-care (01) ==
LOC: MED 21:40
DX: R10.31 Right lower quadrant pain (principal); R10.32 Left lower quadrant pain; R30.9 Painful micturition, unspecified; K59.00 Constipation, unspecified; K21.9 Gastro-esophageal reflux disease without esophagitis; Z79.899 Other long term (current) drug therapy; Z88.1 Allergy status to other antibiotic agents
CPT/HCPCS: 36415; 74177; 80053; 81003; 83690; 85025; 96361; 96374; 99285; J1200; J2270; J2405; J7030; Q9967

== ENCOUNTER 2023-10-31 10:10 | Emergency (ER) | payer SELFPAY ==
[~2023-10-31] VITALS: Ht 175.3 cm; Wt 87.2 kg
[2023-10-31 10:12] VITALS: BP 112/76; PULSE 60; RESP 15; TEMP 97.2; O2SAT 99
[2023-10-31 10:29] VITALS: BP 114/75; PULSE 60; RESP 16
[2023-10-31 10:30] VITALS: O2SAT 100
[2023-10-31] MEDS: KETOROLAC 30 MG/ML VIAL IVP ONE (11:21)
[2023-10-31] MEDS: NACL 0.9% 1,000 ML IV SCH (11:21)
[2023-10-31] MEDS: METOCLOPRAMIDE 10 MG/2 ML INJ VIAL IVP ONE (11:21)
[2023-10-31 11:33] LABS: BASOPHILS # (AUTO) 0.1 K/uL (0.00-0.22); BASOPHILS % (AUTO) 1.4 % (0.0-2.0); EOSINOPHILS # (AUTO) 0.1 K/uL (0-0.4); EOSINOPHILS % (AUTO) 1.9 % (0.0-4.0); HEMATOCRIT 45.7 % (36-52); HEMOGLOBIN 15.4 g/dL (12.0-18.0); LYMPHOCYTES # (AUTO) 1.5 K/uL (2.0-11.5); LYMPHOCYTES % (AUTO) 24.8 % (20.5-51.1); MEAN CORPUSCULAR HEMOGLOBIN 29 pg (27-31); MEAN CORPUSCULAR HGB CONC 34 g/dL (33-37); MEAN CORPUSCULAR VOLUME 86.9 fL (80-94); MONOCYTES # (AUTO) 0.4 K/uL (0.8-1.0); NEUTROPHILS % (AUTO) 64.9 % (42.2-75.2); PLATELET COUNT (AUTO) 235 K/uL (140-450); RED BLOOD CELL COUNT(AUTO) 5.26 MIL/uL (4.20-6.10); RED CELL DISTRIBUTION WIDTH 12.8 % (11.6-13.7); WHITE BLOOD COUNT (AUTO) 6.1 K/uL (4.8-10.8)
[2023-10-31 11:40] LABS: APPEARANCE,URINE CLEAR (CLEAR); BILIRUBIN,URINE NEGATIVE (NEGATIVE); BLOOD, URINE NEGATIVE (NEGATIVE); COLOR,URINE YELLOW (YELLOW); LEUKOCYTE ESTERASE ,URINE NEGATIVE (NEGATIVE); NITRITE, URINE NEGATIVE (NEGATIVE); PH,URINE 7.5 (5.0-9.0); PROTEIN,URINE NEGATIVE (NEGATIVE); UGLUCOSE NEGATIVE (NEGATIVE); UROBILINOGEN,URINE 0.2 EU/dL (0.2 - 1)
[2023-10-31 11:52] LABS: ANION GAP 12.2 (8-16); CALCIUM 9.3 mg/dL (8.5-10.1); CARBON DIOXIDE 27.8 mmol/L (21-32)
[2023-10-31 11:54] LABS: ALBUMIN 3.8 g/dL (3.4-5.0); BILIRUBIN,DIRECT 0.1 mg/dL (0.0-0.3); TOTAL BILIRUBIN 0.4 mg/dL (0.0-1.0); TOTAL PROTEIN, SERUM 7.9 g/dL (6.4-8.2)
[2023-10-31] MEDS ORDERED: BEN10 PO (13:40)
[2023-10-31] MEDS ORDERED: METO-485 PO (13:40)
== END 2023-10-31 14:00 | disposition home or self-care (01) ==
LOC: MED 10:10
DX: K59.00 Constipation, unspecified (principal); R19.7 Diarrhea, unspecified; R09.A2 Foreign body sensation, throat; K21.9 Gastro-esophageal reflux disease without esophagitis; F41.9 Anxiety disorder, unspecified; Z79.1 Long term (current) use of non-steroidal anti-inflammatories (NSAID); Z79.899 Other long term (current) drug therapy; Z88.1 Allergy status to other antibiotic agents
CPT/HCPCS: 36415; 74018; 80048; 80076; 81003; 83690; 85025; 96360; 99284; J2765; J7030; Q0092; J1885

== ENCOUNTER 2023-11-19 12:10 | Emergency (ER) | payer SELFPAY ==
[~2023-11-19] VITALS: Ht 175.3 cm; Wt 85.9 kg
[~2023-11-19 12:10] MED LIST changes: -ACET-10509 PO; +ACET500T99 PO; +METO-485 PO
[2023-11-19 12:18] VITALS: BP 134/85; PULSE 96; RESP 17; TEMP 97.9; O2SAT 98
[2023-11-19] MEDS ORDERED: BISA-28 PO (13:10)
== END 2023-11-19 13:21 | disposition home or self-care (01) ==
LOC: MED 12:10
DX: K59.00 Constipation, unspecified (principal); R19.7 Diarrhea, unspecified; K21.9 Gastro-esophageal reflux disease without esophagitis; Z79.1 Long term (current) use of non-steroidal anti-inflammatories (NSAID); Z79.899 Other long term (current) drug therapy; Z88.1 Allergy status to other antibiotic agents
CPT/HCPCS: 74018; 99283